=== PATIENT | male | born 1990 | race African-American/Black ===

== ENCOUNTER 2019-09-28 09:28 | Emergency (ER) | payer MEDICAID ==
[~2019-09-28] VITALS: Ht 198.1 cm; Wt 82.7 kg
[2019-09-28 10:02] VITALS: BP 131/80
== END 2019-09-28 10:56 | disposition home or self-care (01) ==
LOC: EMS 09:30
DX: R11.2 Nausea with vomiting, unspecified (principal); F17.210 Nicotine dependence, cigarettes, uncomplicated; F12.90 Cannabis use, unspecified, uncomplicated

== ENCOUNTER 2023-05-18 14:42 | Emergency (ER) | payer MEDICAID, OTHER ==
[~2023-05-18] VITALS: Ht 195.6 cm; Wt 79.5 kg
[2023-05-18 15:00] VITALS: BP 109/62; PULSE 73; RESP 16; TEMP 98
== END 2023-05-18 19:15 | disposition left against medical advice (07) ==
LOC: EMS 14:42
DX: M54.9 Dorsalgia, unspecified (principal); Z53.21 Procedure and treatment not carried out due to patient leaving prior to being seen by health care provider
CPT/HCPCS: 99281; Z7502

== ENCOUNTER 2023-11-03 08:42 | Emergency (ER) | payer OTHER ==
[~2023-11-03] VITALS: Ht 198.1 cm; Wt 77.3 kg
[2023-11-03 08:46] VITALS: TEMP 98.7
[2023-11-03 09:05] LABS: APPEARANCE,URINE CLEAR (CLEAR); BILIRUBIN,URINE NEGATIVE (NEGATIVE); COLOR,URINE YELLOW (YELLOW); GLUCOSE, URINE (UA) NEGATIVE (NEGATIVE); KETONES,URINE NEGATIVE (NEGATIVE); LEUKOCYTE ESTERASE ,URINE MODERATE (NEGATIVE); NITRATE,URINE NEGATIVE (NEGATIVE); OCCULT BLOOD,URINE TRACE (NEGATIVE); PH,URINE 6.5 (5.0-8.0); PROTEIN,URINE TRACE mg/dL (NEGATIVE); SPECIFIC GRAVITIY, URINE 1.026 (1.003-1.030); UROBILINOGEN,URINE <=1.0 mg/dL (<=1.0)
[2023-11-03 09:46] LABS: BACTERIA,URINE Few /HPF (None Seen); RBC,URINE 0-2 /HPF (0-2); SQUAMOUS EPITHELIAL CELL,UR Few /LPF (None Seen)
[2023-11-03] MEDS ORDERED: DOXY-354 PO (10:25)
[2023-11-03] MEDS: AZITHROMYCIN 500 MG TABLET PO ONE (10:40)
[2023-11-03] MEDS: CefTRIAXone SODIUM 1 GM/VIAL IM ONE (10:42)
[2023-11-03] MEDS: LIDOCAINE/PF 1% 2 ML VIAL IM ONE (10:42)
[2023-11-03 10:48] VITALS: BP 145/89; PULSE 69; RESP 18
== END 2023-11-03 11:07 | disposition home or self-care (01) ==
LOC: EMS 08:42
DX: N34.2 Other urethritis (principal); F17.210 Nicotine dependence, cigarettes, uncomplicated; F12.90 Cannabis use, unspecified, uncomplicated
CPT/HCPCS: 99283; 81001; 87086; 87186; 96372; J0456; J0696; J3490